=== PATIENT | female | born 2000 | race African-American/Black ===

== ENCOUNTER 2024-01-16 13:01 | Emergency (ER) | payer SELFPAY ==
[~2024-01-16] VITALS: Ht 175.3 cm; Wt 99.8 kg
[2024-01-16 14:05] VITALS: PULSE 80; RESP 18; TEMP 98; O2SAT 100
[2024-01-16] MEDS ORDERED: NAPROXEN250 MG PO (15:05)
== END 2024-01-16 15:15 | disposition home or self-care (01) ==
LOC: ER 13:15
DX: S10.81XA Abrasion of other specified part of neck, initial encounter (principal); R51.9 Headache, unspecified
CPT/HCPCS: 99283